=== PATIENT | female | born 1960 | race Caucasian/White ===

== ENCOUNTER 2019-04-27 00:24 | Emergency (ER) | payer MEDICARE ==
[~2019-04-27] VITALS: Ht 157.5 cm; Wt 48.9 kg
[2019-04-27 01:21] LABS: BASO % 0.5 % (0.0-1.0); EOS % 0.5 % (0.0-3.0); HEMATOCRIT 34.3 % (36.0-47.0); HEMOGLOBIN 11.8 g/dl (12.0-15.5); LYMPH # 0.7 10^3/uL (1.5-5.0); LYMPH % 8.3 % (24.0-44.0); MEAN CORPUSCULAR HEMOGLOBIN 33.9 pg (27.0-33.0); MEAN CORPUSCULAR HGB CONC 34.4 g/dl (32.0-36.5); MEAN CORPUSCULAR VOLUME 98.6 fl (80.0-96.0); MONO # 0.6 10^3/uL (0.0-0.8); MONO % 7.6 % (0.0-5.0); NEUTROPHILS # 6.5 10^3/uL (1.5-8.5); PLATELET COUNT, AUTOMATED 267 10^3/uL (150-450); RED BLOOD COUNT 3.48 10^6/uL (4.00-5.40); WHITE BLOOD COUNT 7.8 10^3/uL (4.0-10.0)
[2019-04-27] MEDS ORDERED: IPRATROPIUM 0.5MG/ALBUTEROL 2.5MG INH SOL UD 3ML (DUONEB)(J7620) NEB ONE ×2 (01:30→05:30)
[2019-04-27] MEDS ORDERED: dexameTHASONE 20 MG/5 ML VIAL (J1100) IV ONE (01:30)
[2019-04-27 01:46] LABS: BLOOD UREA NITROGEN 13 MG/DL (7-18); CALCIUM LEVEL 8.1 MG/DL (8.5-10.1); CARBON DIOXIDE LEVEL 30 MEQ/L (21-32); CHLORIDE LEVEL 98 MEQ/L (98-107); CK-MB VALUE MASS 2.9 NG/ML (<3.6); CPK CREATINE PHOSPHOKINASE 100 U/L (26-192); CREATININE FOR GFR 0.45 MG/DL (0.55-1.30); GLOMERULAR FILTRATION RATE > 60.0 (>51); GLUCOSE, FASTING 101 MG/DL (70-100); POTASSIUM SERUM 3.6 MEQ/L (3.5-5.1); SODIUM LEVEL 133 MEQ/L (136-145); TROPONIN I 0.08 NG/ML (< 0.10)
[2019-04-27] MEDS ORDERED: TRIL600T PO (01:54)
[2019-04-27] MEDS ORDERED: ATOR40TA75 PO (01:54)
[2019-04-27] MEDS ORDERED: LOSA25TA14 PO (01:54)
[2019-04-27] MEDS ORDERED: NITR0.4S14 SL (01:54)
[2019-04-27] MEDS ORDERED: GABA600T4 PO (01:54)
[2019-04-27] MEDS ORDERED: LEVO50TA5 PO (01:54)
[2019-04-27] MEDS ORDERED: ASPI81CH33 PO (01:54)
[2019-04-27] MEDS ORDERED: VENTAER INH (01:54)
[2019-04-27] MEDS ORDERED: BYST5TAB2 PO (01:54)
[2019-04-27 05:49] LABS: CK-MB VALUE MASS 3.4 NG/ML (<3.6); MB/CK RELATIVE INDEX 3.4 (< OR =4); TROPONIN I 0.12 NG/ML (< 0.10)
[2019-04-27] MEDS ORDERED: ASPIRIN 325 MG TAB PO ONE (06:00)
[2019-04-27] MEDS ORDERED: HEPARIN DRIP 25,000 UNITS in IV 1 EA IV SCH (06:05)
[2019-04-27] MEDS ORDERED: HEPARIN SOD (PORCINE) 5000 UNITS/ML VIAL IV ONE (06:15)
[2019-04-27 06:45] VITALS: BP 146/77
--- NOTE | 2019-04-27 12:19 | REP ---
Portable chest x-ray: Single view. History: Chest pain. Findings: The lungs are hyperinflated consistent with COPD. There are emphysematous changes in the upper lobes bilaterally. EKG monitoring electrodes and oxygen delivery tubing are seen. Heart size is normal. Pleural angles are sharp. Impression: Evidence of COPD. No acute infiltrate. Electronically Signed by Kervin Kaur MD 04/27/2019 08:00 A
--- NOTE | 2019-04-28 07:04 | ECGEPIP ---
[facility] - ED Test Date: 2019-04-27 Pat Name: SIGIFREDO CUELLO Department: Room: - Gender: Female Starch Crab: KCJ : 1960 Requested By: KATHY LIGHT Order Number: [id number] Reading MD: Layton Pollock Measurements Intervals [place] Rate: 79 P: 86 ND: 182 QRS: 66 QRSD: 82 T: 67 QT: 357 QTc: 411 Interpretive Statements SINUS RHYTHM POSSIBLE LEFT ATRIAL ENLARGEMENT NO PRIORS FOR COMPARISON Electronically Signed on 04-28-2019 7:04:34 EDT by Layton Pollock
--- NOTE | 2019-04-28 07:07 | ECGEPIP ---
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
== END 2019-04-27 06:47 | disposition short-term general hospital (02) ==
LOC: M ED 00:24
DX: R79.89 Other specified abnormal findings of blood chemistry (principal); J44.1 Chronic obstructive pulmonary disease with (acute) exacerbation; K21.9 Gastro-esophageal reflux disease without esophagitis; Z95.1 Presence of aortocoronary bypass graft; Z95.5 Presence of coronary angioplasty implant and graft; F17.200 Nicotine dependence, unspecified, uncomplicated; Z79.82 Long term (current) use of aspirin; Z79.899 Other long term (current) drug therapy
CPT/HCPCS: 71045; 80048; 82550; 82553; 84484; 85025; 93005; 93041; 94640; 94760; 96374; 99285; J1100